=== PATIENT | female | born 2000 | race Caucasian/White ===

== ENCOUNTER 2023-08-04 23:13 | Emergency (ER) | payer OTHER, SELFPAY ==
[2023-08-04 23:22] VITALS: BP 137/93; PULSE 113; RESP 18; TEMP 37.2; O2SAT 98; BMI 32.3
--- NOTE | 2023-08-04 23:27 | ED.LOWEXIN ---
HPI - Extremity Injury (Lower) General Time Seen by Provider: 23:28 Date Seen: 08/04/23 Chief Complaint: Extremity Pain/Injury, Lower Stated Complaint: Left ankle injury Time Seen by Provider: 08/04/23 23:14 Source: patient and RN notes reviewed Mode of arrival: ambulatory Limitations: no limitations History of Present Illness HPI Narrative: 23-year-old female comes in today with left ankle pain after slipping on the stairs. Complains of pain of the lateral ankle, painful to walk. Has not taken anything for this. Denies prior ankle injury, denies possibility of and has Nexplanon in place. Related Data Home Medications Medication Instructions Recorded Confirmed No Known Home Medications 08/04/23 08/04/23 Allergies Allergy/AdvReac Type Severity Reaction Status Date / Time No Known Drug Allergies Allergy Verified 08/04/23 23:25 PFSH PFSH Social History Smoking Status: Never smoker Do you use any of these nicotine containing products: None Second hand tobacco smoke exposure: No How often do you have a drink containing alcohol: monthly or less How many standard drinks containing alcohol do you have on a typical day: 1 or 2 How often do you have six or more drinks on one occasion: Never AUDIT-C Alcohol total score: 1 Non-prescribed substance use: denies use service: No Exam Narrative: Exam Narrative: General: well nourished , NAD Head: Atraumatic and normocephalic ENT: External ears and external nose are normal Eyes: Conjunctiva clear, pupils are equal reactive, external ocular motions are intact Neck: Full spontaneous range of motion of the neck Lungs: No respiratory distress Musculoskeletal: Swelling and tenderness anterior to the lateral malleolus on the left, no tenderness the base of the 5th metatarsal and no tenderness of the lateral malleolus itself Neurologic: No gross focal neurologic deficits Skin: No rashes Psych: Mood and affect are appropriate Const: Vital Signs, click to edit/add: Vital Signs - 24 hr 08/04/23 23:22 Temperature 99 F Pulse Rate [Pulse Oximeter] 113 H Respiratory Rate 18 Blood Pressure [Ri ght Upper Arm] 137/93 H Pulse Oximetry 98 Oxygen Delivery Me thod Room Air Course Course ED Course: Patient seen examined, prior records reviewed. Patient presents today with left ankle pain after twisting the ankle on the stairs. Tenderness and swelling anterior to the lateral malleolus most consistent with sprain, x-rays are ordered and anticipate discharge. Ibuprofen ordered for pain. Reevaluation(s) Time of Reevaluation #1: 23:48 Reevaluation #1: X-ray of the left foot does not demonstrate any acute bony abnormalities. Patient is stable for discharge Vital Signs Vital signs: Initial Vital Signs Temperature 99 F 08/04/23 23:22 Temperature Source Temporal Artery Scan 08/04/23 23:22 Pulse Rate 113 H 08/04/23 23:22 Pulse Rhythm Regular 08/04/23 23:22 Pulse Strength 3+ Normal 08/04/23 23:22 Respiratory Rate 18 08/04/23 23:22 Blood Pressure 137/93 H 08/04/23 23:22 Blood Pressure Mean 107 H 08/04/23 23:22 Blood Pressure Position Sitting 08/04/23 23:22 Pulse Oximetry 98 08/04/23 23:22 Oxygen Delivery Method Room Air 08/04/23 23:22 Vital Signs Temperature 99 F 08/04/23 23:22 Pulse Rate 113 H 08/04/23 23:22 Respiratory Rate 18 08/04/23 23:22 Blood Pressure 137/93 H 08/04/23 23:22 Pulse Oximetry 98 08/04/23 23:22 Oxygen Delivery Method Room Air 08/04/23 23:22 Temperature 99 F 08/04/23 23:22 Pulse Rate 113 H 08/04/23 23:22 Respiratory Rate 18 08/04/23 23:22 Blood Pressure 137/93 H 08/04/23 23:22 Pulse Oximetry 98 08/04/23 23:22 Oxygen Delivery Method Room Air 08/04/23 23:22 Discharge Plan Discharge Clinical Impression: Ankle sprain and strain Patient Disposition: Home, Self-Care Condition: Stable Instructions: Ankle Sprain (ED) Additional Instructions: Ambulate with a ankle splint, weight-bearing as tolerated, crutches as needed Take Tylenol and ibuprofen as needed for pain Activity Level: Weight Bearing as Tolerated and Use Crutches Discharge Diet: Regular Prescriptions: No Action No Known Home Medications Stand Alone Forms: MyHealth Info Instructions
--- NOTE | 2023-08-04 23:32 | XR_ITS ---
Patient: ADITHYA BILLY Facility:?[facility] Patient ID:?[id number] Site Patient ID:?[id number]. Site :?2000 Study:?XRay-Extremity Left FOOT-08/04/2023 11:49:23 PM Ordering Physician:LEA Final Report: INDICATION: Trauma. TECHNIQUE: Left foot radiographs, 3 views. COMPARISON: None. FINDINGS: No acute fractures or dislocation. The joint spaces are preserved. No significant joint effusion. The Lisfranc joint appears intact. Boehler`s angle is preserved. No significant soft tissue edema or radiopaque foreign bodies. IMPRESSION: No acute fractures or dislocation. Dictated by Vahe Hernandes MD @ 08/05/2023 12:51:16 AM Signed by:?Vahe Hernandes MD @08/05/2023 12:51:16 AM (Electronic Signature)
[2023-08-04] MEDS: IBUPROFEN 600 MG TABLET PO (23:42)
== END 2023-08-05 00:34 | disposition home or self-care (01) ==
PROVIDERS: Emergency Provider Family Medicine
DX: S93.402A Sprain of unspecified ligament of left ankle, initial encounter (principal); W10.9XXA Fall (on) (from) unspecified stairs and steps, initial encounter
CPT/HCPCS: 29515; 73630; 99283; 99284; A9270

== ENCOUNTER 2024-04-27 10:32 | Outpatient (CLI) | payer OTHER, SELFPAY ==
--- NOTE | 2024-04-27 11:00 | CRLHL7_ITS ---
For Patients: As a result of the Century Cures Act, medical imaging exams and procedure reports are released immediately into your electronic medical record. You may view this report before your referring provider. If you have questions, please contact your health care provider. CLINICAL HISTORY: Chronic sinusitis. TECHNIQUE: CT of the paranasal sinuses without contrast. COMPARISON: None. FINDINGS: Anterior sinus group (frontal sinuses and anterior ethmoid air cells/frontoethmoidal recesses: The frontal sinuses are well aerated. Mild mucosal thickening and pooled secretions within several ethmoid air cells. The frontoethmoidal drainage pathways are not obstructed. Posterior sinus group (posterior ethmoid air cells and sphenoid sinuses)/sphenoethmoidal recesses: The posterior ethmoid air cells are well aerated. The sphenoid sinuses are well aerated. The sphenoethmoidal drainage pathways are not obstructed. Maxillary sinuses and ostiomeatal complexes: Mild bilateral maxillary sinus mucosal thickening. [place] infundibular outflow tracts are mildly narrowed but not obstructed. Turbinates: Bilateral middle turbinate tu bullosa. Nasal septum: Minimal rightward deviation. Nasal cavity: No obstructive lesions. Skullbase, maxilla, TMJ: Keros type 3 on the left. Keros type 3 on the right. No cribriform plate/lamellar dehiscence. No lamina papyracea dehiscence. Anterior ethmoidal canals are normally positioned No lytic or blastic osseous lesions. No periapical tooth lucencies. Mastoid air cells are clear. Orbital contents: Within normal limits. Imaged intracranial contents: Within normal limits. Imaged soft tissues structures: Within normal limits. IMPRESSION: 1. Scattered sites of mild paranasal sinus opacification including mucosal thickening/secretions within the ethmoid air cells and maxillary sinuses. No obstruction of the paranasal sinus outflow tracts. 2. No nasal cavity lesions. Please note that all CT scans at this facility use dose modulation, iterative reconstruction, and/or weight-based dosing when appropriate to reduce radiation dose to as low as reasonably achievable. Dictated by Sincere Rodríguez MD @ 04/27/2024 11:05:55 AM (Electronically Signed)
== END 2024-04-27 10:33 | disposition home or self-care (01) ==
LOC: CT 10:34
PROVIDERS: Visit Provider Otolaryngology
DX: J32.9 Chronic sinusitis, unspecified (principal)
CPT/HCPCS: 70486

== ENCOUNTER 2024-05-27 07:18 | Day surgery (SDC) | payer OTHER, SELFPAY ==
[2024-05-27] VITALS (13 sets, daily range): BP systolic 103–146; BP diastolic 54–96; PULSE 77–108; RESP 16–20; TEMP 36–37.1; O2SAT 92–96; BMI 39.3
--- OUTSIDE RECORDS SUMMARY | 2024-05-27 07:22 | XMS_ITS ---
Author Organization [facility] Address [address] [place] [id number] Care Team Providers Care Electromechanical Equipment Tester Name Role Phone DAXA VENTURA Primary Care Provider [phone] REASON FOR VISIT procedure rescheduling Social History Sex Assigned At : Social History Observation Description Sex Assigned At Female Encounters Encounter Location Date Provider Diagnosis [facility] [address] [place] [id number] 10/15/2023 DAXA VENTURA Plan Of Treatment No Information Progress Notes * ADITHYA ZELAYA HDOB:2000 (23 yo F)Acc No.[id number]:10/15/2023 Patient: Susanna ADITHYA SANDERS :2000 A ge:23 Y S ex:Female Address:[address] [place] [address] * true * Date: Generated for Printi ng/Fadayag/eTransmitting on: 0 05/27/2024 07:22 AM SHOWROOM CONSULTANT
--- OUTSIDE RECORDS SUMMARY | 2024-05-27 07:22 | XMS_ITS | Clinical Summary ---
Author Organization [facility] Address [place], [place] [address] Care Team Providers Care Executive Director Global Brand Marketing Name Role Phone Pcp, No Primary Care Provider Unavailabl e Allergies No known active allergies Medications ergocalciferol (VITAMIN D2; DRISDOL) 50,000 unit capsule Take 1 Capsule (50,000 units) by mouth once weekly. 09/07/2023 Active Social History Tobacco Use Types Packs/Day Years Used Date Smoking Tobacco: Never Smokeless Tobacco: Never Tobacco Cessation:Counseling Given: Yes Social Connections Answer Date Recorded Frequency of Communication with Friends and Fami ly Not on file 09/07/2023 Comments Unknown Sex and Gender Information Value Date Recorded Sex Assigned at Not on file Legal Sex Female 9:55 AM CDT Gender Identity Not on file Sexual Orientation Not on file Obstetrics History Last Filed Vital Signs Vital Sign Reading Time Taken Comments Blood Pressure 133/90 09/07/2023 1:34 PM CDT tow er Pulse 96 09/07/2023 1:34 PM CDT Temperature - - Respiratory Rate - - Oxygen Saturation 98% 09/07/2023 1:34 PM CDT Inhaled Oxygen Concentration - - Weight 107.5 kg (237 lb) 09/07/2023 1:34 PM CDT Height - - Body Mass Index - - Plan of Treatment Health Maintenance Due Date Last Done Comments Tdap 2013 Depression screening for age 12+ 2014 HIV for age 15-65 2017 HPV series for age 9-26 (1 - 3-dose series) 2017 Chlamydia for age 16-24 2018 BMI (ht and wt on same day) for age 18+ 01/31/2020 Hepatitis C screening for ag e 18-79 01/31/2020 Tetanus booster 2022 Pap test for age 21-65 2023 COVID-19 vaccine series (2023- season) 2023 02/05/2023, 01/13/2022 Influenza for age 9-49 12/20/2023 Pneumococcal series for age 6-49 Aged Out No longer eligible b ased on patient's age to complete this topic Care Teams Executive Director Global Brand Marketing Relationship Specialty Start Date End Date Pcp, No . PCP - General 09/07/23
--- OUTSIDE RECORDS SUMMARY | 2024-05-27 07:23 | XMS_ITS ---
Author Organization [facility] [place] Address [address] [place] [id number] Care Team Providers Care Social Science Analyst Name Role Phone DAXA VENTURA Primary Care Provider Allergies No Known Allergies REASON FOR VISIT nexplanon removal/reinsertion, Reference # for Nexplanon [id number], pt states had nexplanon places 2020 Medications Medication SIG (Take, Route, Frequency, Duration) Notes Start Date End Date Status Nexplanon LOT [id number] EXP 01/14/2023 Active Olopatadine HCl 0.2 % 1 drop into affected eye Ophthalmic Once a day 11/28/2022 Not-Taking Social History Tobacco Use: Social History Observation Description Date Details (start date - stop date) Never Smoker NA - NA Sex Assigned At : Social History Observation Description Sex Assigned At Female SBIRT (2018 Edition) Question Answer Notes Patient refused/declined SBIRT screening at this time? No 1. How often do you have a drink containing alco hol? Never 3. How often do you have five or more drinks on one occasion? Never SCORE 0 Interpretation Negative How many times in the past y ear have you used an illegal drug or used a prescription medication for non-medical reasons? 0 Total Count 0 Interpretation Negative Tobacco Control (Standard) Question Answer Notes Tobacco use: Nonsmoker Vital Signs Temperature 98.2 degrees Fahrenheit 11/18/19 24 Blood pressure systolic 132 mm Hg 11/18/19 24 Blood pressure diastolic 84 mm Hg 024 Heart Rate 94 /min 11/18/2023 Respiratory Rate 19 /min 11/18/2023 Height 63 in 11/18/2023 Weight 238.8 lbs 11/18/2023 BMI 42.3 kg/m2 11/18/2023 Oximetry 98 % 11/18/2023 Height-cm 160.02 cm 11/18/2023 Weight-kg 108.32 kg 11/18/2023 Procedures Procedure Date Ordered Date Performed Result Body Sit e REMOVE/INSERT NEXPLANON DRUG IMPLANT 11/18/2023 11/18/2023 N/A Encounters Encounter Location Date Provider Diagnosis Jeanne Hallman [facility] [address] [place], [place] [phone] 11/18/2023 DAXA VENTURA Encounter for remova l and reinsertion of Nexplanon Z30.46 Assessments Encounter Date Diagnosis (ICD Code) Assessment Notes Treatment Notes Treatment Clinical Notes Section Notes 11/18/2023 Encounter for removal and reinsertion of Nexplanon (ICD-10 - Z30.46) 11/18/2023 Other All questions were addressed. Patient/caretake r appears to clearly understand and is comfortable with careplan. Discussed treatment plan and expected course. Plan Of Treatment Treatment Notes Assessment Notes Other All questions were a ddressed. Patient/sheriff officer appears to clearly understand and is comfortable with careplan. Discussed treatment plan and expected course. Next Appt Details Follow Up: prn, Reason: Retu rn sooner if the condition changes, worsens or does not resolve. Preventative visit appt when due. Medications Administered Medication Instructions Date of Administration Dosage Notes Xylocaine/EPINEPHrine 11/18/2023 3 mL chase ified by Xena Andrews 11/18/2023 11:13:13 AM > Procedure Notes * Category Sub-Category Detail Notes Nexplanon Consent: Risks and benefi ts discussed. All questions answered. Informed consent signed Serial # [id number] Expiration Date: 07/2025 Removal & Reinsertion Procedure: Patient was placed in supine position and the left arm was rotated laterally and raised superiorly with the hand behind the head.A time-out was performed prior to initiating procedure to be sure of location. The area surrounding the Nexplanon was prepared with Choloraprep and draped in the usual sterile manner. 3 ml of 1 % lidocaine with epi was injected at the removal site. A perpendicular skin incision was made over the distal aspect of the device. The capsule lysed sharply and the device removed using a hemostat. The Nexplanon device intact. Hemostasis was assured.The skin was stretched and the wide bore needle on the clinical abstractor entered the skin slightly less than 30 degree angle. The clinical abstractor was lowered along the plane of the skin and then lifted and tented as the needle was inserted to its full length. The device was deployed and removed. Steri-strips were placed at the insertion site and covered with a band aid pressure dressing. Placement of the alexei was confirmed by palpation by provider and patient. She was told to remove the band aid in 24 hours and the steri-strips in 7 days., Removal reason: Removal Reason: Removal & reinse rtion Prior Auth Obtained Does the patient have insura nce?: Yes Name of primary insurance: [facility] Was a prior auth required?: No Confirmation Number: [id number] Progress Notes * ADITHYA ZELAYA ADOB :2000 (23 yo F)Acc No.[id number]:11/18/2023 Progress Note Patient: ADITHYA RUSSELL A Provider: JEREMY OLIVARES :2000 A ge:23 Y S ex:Female Date:11/18/2023 Address:[facility] [id number] Structured Data:Homeless : N o Subjective: * Chief Complaints: * N explanon removal/reinsertionReference # for Nexplanon [id number] states had nexplanon places 2020 * HPI: A nxiety Screening: OMAIRA-7 (2018 Edition) F eeling nervous, anxious, or on edge S everal days N ot being able to stop or control worrying?Several days W orrying too much about different things S everal days T rouble relaxing S everal days B eing so restless that it is hard to sit still S everal days B ecoming easily annoyed or irritable S everal days F eeling afraid as if something awful might happen S everal days T otal OMAIRA-7 Score 7 I f you checked any problems, how difficult have they made it for you to do your work, take care of things at home, or get along with other people? N ot difficult at all I nterpretation of Total ( 5 to 9) Mild D epression Screening: PHQ-2 (2015 Edition) L ittle interest or pleasure in doing things??Not at all F eeling down, depressed, or hopeless? N ot at all T otal Score 0 D epression Screening: Intervention F ollow-Up for Depression P atient follow-up to return when and if necessary N ew/Follow-up Patient Consult: Adithya presents today for a nexplanon removal and reinsertion. * ROS: A ll Other Systems: Review of Systems (ROS) A ll others negative except those mentioned in HPI. * Medical History: * Surgical History: D enies Past Surgical History * Hospitalization/Major Diagno stic Procedure: D enies Past Hospitalization * Family History: M other: diagnosed with Type 2 diabetes mellitus without complication, unspecified whether intermediate insulin use. F ather: diagnosed with Type 2 diabetes mellitus without complication, unspecified whether railway signal operator insulin use. P ategildardo Grand Father: diagnosed with Type 2 diabetes mellitus without complication, unspecified whether intermediate insulin use. P aternal Grand Mother: diagnosed with Type 2 diabetes mellitus without complication, unspecified whether intermediate insulin use. M aternal Grand Mother: diagnosed with Type 2 diabetes mellitus without complication, unspecified whether railway signal operator insulin use. * Social History: T obacco Use: T obacco Control (Standard) T obacco use: N onsmoker S uicide Screening: S uicide Screening I n the past two weeks, have you been bothered by thoughts that you want to kill yourself or attempt suicide? N o I ntimate Partner Violence (IPV): I PV Screening: negative . D rugs/Alcohol: D rugs H ave you used drugs other than those for medical reasons in the past 12 months? N o SBIRT (2018 Edition) P atient refused/declined SBIRT screening at this time? N o 1 . How often do you have a drink containing alcohol? N ever 3 . How often do you have five or more drinks on one occasion? N ever S CORE 0 I nterpretation N egative H ow many times in the past year have you used an illegal drug or used a prescription medication for non-medical reasons? 0 T otal Count 0 I nterpretation N egative * Medications: T akingNexplanon , Notes to Pharmacist: LOT [id number] EXP 01/14/2023Taking Nexplanon , Notes to Pharmacist: LOT [id number] EXP 01/14/2023Not-Taking/PRNOlopatadine HCl 0.2 % Solution 1 drop into affected eye Ophthalmic Once a day Medication List reviewed and reconciled with the patientNot-Taking/PRN Olopatadine HCl 0.2 % Solution 1 drop into affected eye Ophthalmic Once a day Medication List reviewed and reconciled with the patient * Allergies: N .K.D.A.no[Allergies Verified] Objective: * Vitals: T emp:98.2F, HR: 140 /min,94/min, BP:132/84mm Hg, Weight:238.8lbs, BMI:42.3Index, Height: 63 in, RR:19/min, Oxygen Sat %:98%, Ht-cm: 160.02 cm, Wt-k.32 kg. * Examination: G eneral Examination: GENERAL APPEARANCE: A wake, alert , pleasant, well nourished, in no acute distress. NEUROLOGIC: A lert and oriented, cooperative with exam, CN II-XII grossly intact. F amily Planning: Primary Method Beg. Visit - Female Primary Contr Method End of Visit Intention Contraceptive Counseling Assessment: * Assessment: 1. E ncounter for removal and reinsertion of Nexplanon - Z30.46 (Primary) Plan: * Treatment: 2. O thers Notes: All questions were addressed. Patient/sheriff officer appears to clearly understand and is comfortable with careplan. Discussed treatment plan and expected course. * Procedures: N explanon: Consent: R isks and benefits discussed. All questions answered. Informed consent signed. Serial # 1 [id number]. Expiration Date: 07/2025. Removal & Reinsertion Procedure: Angie bullard was placed in supine position and the left arm was rotated laterally and raised superiorly with the hand behind the head. A time-out was performed prior to initiating procedure to be sure of location. The area surrounding the Nexplanon was prepared with Choloraprep and draped in the usual sterile manner. 3 ml of 1 % lidocaine with epi was injected at the removal site. A perpendicular skin incision was made over the distal aspect of the device. The capsule lysed sharply and the device removed using a hemostat. The Nexplanon device intact. Hemostasis was assured. The skin was stretched and the wide bore needle on the clinical abstractor entered the skin slightly less than 30 degree angle. The clinical abstractor was lowered along the plane of the skin and then lifted and tented as the needle was inserted to its full length. The device was deployed and removed. Steri-strips were placed at the insertion site and covered with a band aid pressure dressing. Placement of the alexei was confirmed by palpation by provider and patient. She was told to remove the band aid in 24 hours and the steri-strips in 7 days., . Removal reason: R emoval Reason R emoval & reinsertion Prior Auth Obtained D oes the patient have insurance? Y es N birgit of primary insurance [facility] W as a prior auth required? N o C onfirmation Number [id number] * Therapeutic Injections: Lidocaine 1% with Epi : 3 mL (Dose No:1) (Route: Subcutaneous) given by JEREMY CARLISLE on left arm subcutaneous * Procedure Codes: J 7307 Levonorgesterl-Releasing Intra Cont System Nexplanon [id number] RMVL W/RINSJ NON-BIODEGRADABLE DRUG DLVR [id number] Lidocaine 1% with Epi, Units: 3.00 * Preventive Medicine: Counseling: C are goal follow-up plan: Exercise Counseling Provided- Y es Patient received educational materials on physical activity- Y es Nutrition/Dietary Counseling provided?Yes BMI management provided Y es Above Normal BMI Follow-up D ietary management education, guidance, and counseling, Dietary needs education, Giving encouragement to exercise * Follow Up: p rn (Reason: Return sooner if the condition changes, worsens or does not resolve. Preventative visit appt when due.) * Billing Information: * Visit Code: * Procedure Codes: J7307 Levonorgesterl-[place]. [address] RMVL W/RINSJ NON-BIODEGRADABLE DRUG DLVR IMPLT. J2001 Lidocaine 1% with Epi. Units: 3.00. Images * Consent for Procedure- Cooper 11/18/2023 11:08:17 AM * Sign off status: Completed true * Provider: BRITTANY OLIVARES- Date: 0 11/18/2023 Generated for Flores salmeron/Isaias/Deangelo on: 0 05/27/2024 07:22 AM OPEN HEARTH WORKER History and Physical Notes * HPI (History of Present Illness) Category Sub-Category Detail Notes Category Not es New/Follow-up Patient Consult Adithya presents today for a nexplanon removal and reinsertion Depression Screening Intervention Follow-Up for Depression: Patient follow-up to return when and if necessary Anxiety Screening OMAIRA-7 (2018 Edition) Feeling nervous, anxious, or on edge: Several days Not being able to stop or control worryi ng: Several days Worrying too much about different things : Several days Trouble relaxing: Several days Being so restless that it is hard to sit still: Several days Becoming easily annoyed or irritable: Se veral days Feeling afraid as if something awful [place] ht happen: Several days Total OMAIRA-7 Score: 7 If you checked any problems, how difficult have they made it for you to do your work, take care of things at home, or get along with other people?: Not difficult at all Interpretation of Total: (5 to 9) Mild Depression Screening PHQ-2 (2015 Edition) Little interest or pleasure in doing things?: Not at all Feeling down, depressed, or hopeless?: N ot at all Total Score: 0 Examination Category Sub-Category Detail Notes Category Not es General Examination GENERAL APPEARANCE: Awake, a lert , pleasant, well nourished, in no acute distress NEUROLOGIC: Alert and oriented, cooperative with exam, CN II-XII grossly intact Family Planning Primary Method Beg. Visit - Female Primary Contraceptive Method at Beginning of Visit- Female: Hormonal implant Primary Contr Method End of Visit Primar y Contraceptive Method at Exit- Female: Hormonal implant Intention In the next 12 month s,: pt does not want to get / have a baby Contraceptive Counseling Contraceptive c ounseling has been provided to patient that includes results of physical exam and lab studies, effective use of contraceptive methods, including natural family planning, and the benefits and efficacy of the methods including potential side effects and complications. Counseling has also been provided as to how to discontinue the method selected and information regarding back-up method selected and information regarding back up method use, including the use of certain oral contraceptives as post-coital emergency contraception:
--- OUTSIDE RECORDS SUMMARY | 2024-05-27 07:23 | XMS_ITS | Patient Health Record ---
Author Organization [facility] Address [address] [place] [place] [phone] Care Team Providers Care Assignment Manager Name Role Phone DAXA VENTURA Primary Care Provider SHAYY PRICE Unavailable [phone] Allergies No Known Allergies Reason For Referral No Information Medications Medication SIG (Take, Route, Frequency, Duration) Notes Start Date End Date Status Nexplanon LOT [id number] EXP 01/14/2023 Active Olopatadine HCl 0.2 % 1 drop into affected eye Ophthalmic Once a day 11/28/2022 Not-Taking Immunizations Vaccine Route Administration Date Status Comme nts SARSCOV2 VAC 50MCG/0.5ML IM, Moderna IM Intramuscular 07/12/2020 Administered Moderna [id number] SARSCOV2 VAC 50MCG/0.5ML IM, Moderna 2nd dose IM Intramuscular 08/09/2020 Administered moderna 044a21 a SARSCOV2 VAC 50MCG/0.5ML IM, Moderna 3rd dose IM Intramuscular 03/29/2021 Administered Social History Tobacco Use: Social History Observation [...] reasons? 0 Total Count 0 Interpretation Negative Smoking Question Answer Notes Are you a: never smoker Tobacco Control (Standard) Question Answer Notes Tobacco use: Nonsmoker Problems Problem Type SNOMED Code ICD Code Onset Dates Problem Status W/U Status Risk Notes Problem [id number] Allergic rhinitis, unspecified (J30.9) Active confirmed Vital Signs Heart Rate 94 /min 11/18/2023 Temperature 98.2 degrees Fahrenheit 11/18/2023 Respiratory Rate 19 /min 11/18/2023 Height-cm 160.02 cm 11/18/2023 Oximetry 98 % 11/18/2023 Blood pressure diastolic 84 mm Hg 11/18/2023 Weight-kg 108.32 kg 11/18/2023 Height 63 in 11/18/2023 Blood pressure systolic 132 mm Hg 11/18/2023 Weight 238.8 lbs 11/18/2023 BMI 42.3 kg/m2 11/18/2023 Procedures Procedure Date Ordered Date Performed Result Body Sit e REMOVE/INSERT NEXPLANON DRUG IMPLANT 11/18/2023 11/18/2023 N/A Encounters Encounter Location Date Provider Diagnosis [facility] [address] [place] [address] [place] [phone] 11/18/2023 DAXA VENTURA Encounter for remova l and reinsertion of Nexplanon Z30.46 [facility] [address] [place] [address] [place] [id number] 10/02/2023 DAXA VENTURA [facility] [address] [place] [address] [place] [id number] 10/15/2023 DAXA VENTURA Assessments Encounter Date Diagnosis (ICD Code) Assessment Notes Treatment Notes Treatment Clinical Notes Section Notes 11/18/2023 Encounter for removal and reinsertion of Nexplanon (ICD-10 - Z30.46) 11/18/2023 Other All questions were addressed. Patient/caretake r appears to clearly understand and is comfortable with careplan. Discussed treatment plan and expected course. Plan Of Treatment No Information Insurance Providers Payer Name Payer Address Payer Phone Subscriber Number Group Number Insured Name Patient Relationship to Insured Coverage Start Date Coverage End Date [facility] [address] [place] [phone] [id number] Ann-Marie Mejia Natural Child - Insured does not have Financial Responsibility (includes legally adopted child) 4 Medications Administered Medication Instructions Date of Administration Dosage Notes Lidocaine 1% 12/12/2020 3.0 mL LOT [id number] [facility] Xylocaine/EPINEPHrine 11/18/2023 3 mL chase ified by Alyssa Miranda Xena 11/18/2023 11:13:13 AM > Medical (General) History Medical History History ICD Code vitamin D deficency
--- OUTSIDE RECORDS SUMMARY | 2024-05-27 07:23 | XMS_ITS ---
Author Organization [facility] [place] Address [address] [place] [phone] Care Team Providers Care Air Commodore Name Role Phone DAXA VENTURA Primary Care Provider SHAYY PRICE [phone] REASON FOR VISIT Migraines Social History Sex Assigned At : Social History Observation Description Sex Assigned At Female Encounters Encounter Location Date Provider Diagnosis Jeanne [facility] [place] [address] [place] [id number] 12/15/2023 SHAYY PRICE Plan Of Treatment No Information Progress Notes * ADITHYA ZELAYA ADOB :2000 (24 yo F)Acc No.[id number]:12/15/2023 UNLOCKED PROGRESS NOTE Progress Notes Patient: Susanna ADITHYA SANDERS Provider: Graeme PRICE NP :2000 A ge:23 Y S ex:Female Date:12/15/2023 Address[address] [id number] Pcp:DAXA VENTURA Structured Data:Homeless : N o Subjective: * Chief Complaints: * 1 . Migraines. * Medical History: Objective: * Vitals: Assessment: Plan: * Treatment: * Billing Information: * Visit Code: * Procedure Codes: * Electronic signature of BRITTANY LOPEZ on 05/27/2024 at 07:23 AM DATABASE ADMINISTRATION MANAGER Sign off status: Pending * Provider: Graeme PRICE NP Date: 0 12/15/2023 Generated for Flores salmeron/Isaias/Deangelo on: 0 05/27/2024 07:23 AM DATABASE ADMINISTRATION MANAGER
[2024-05-27 07:52] LABS: Ur HCG Qualitative* Negative (Negative)
[2024-05-27] MEDS: 0.9 % SODIUM CHLORIDE 500 ML 500 ML 100 ML IV (08:13)
[2024-05-27] MEDS: SODIUM CHLORIDE 0.9 % (FLUSH) 10 ML SYRINGE IVF (08:14)
[2024-05-27] MEDS: OXYMETAZOLINE 0.05% NASAL SPRAY 2 SPRAY NOSTRIL-B (08:15)
[2024-05-27] MEDS: BUPIVACAINE 0.5%/EPINEPHRINE 0.9 MG (30.9 ML) INJECTION (09:15)
[2024-05-27] MEDS: MUPIROCIN 1 GM PACKET 1 APPLIC TOPICAL (09:15)
[2024-05-27] MEDS: COCAINE HCL 4 % 4 ML SOLUTION NOSTRIL-B (09:15)
[2024-05-27] MEDS: AYR SALINE NASAL GEL 1 APPLIC NOSTRIL-B (09:15)
--- NOTE | 2024-05-27 09:50 | W.ANESCHARGE ---
Anesthesia Charges Start Date/Time Anesthesia Start Date: 05/27/24 Anesthesia Start Time: 08:53 Stop Date/Time Anesthesia Stop Date: 05/27/24 Anesthesia Stop Time: 09:42 Coding CPT Codes CPT Codes: ANESTH NOSE/SINUS SURGERY - 55444 ([id number]) P3 - PATIENT W/SEVERE SYS DISEASE, QK - VMWARE ADMINISTRATOR 2-4 CNCRNT ANES PROC, QX - AUTO BRAKE MECHANIC SVC W/ MD MED DIRECTION
--- NOTE | 2024-05-27 10:22 | P.ENTPROC_ITS ---
Procedure Note Date of procedure: 05/27/24 Procedure: Preop diagnosis deviated septum nasal obstruction bilateral inferior turbinate hypertrophy bilateral middle turbinate tu bullosa nasal headache Postop diagnosis same Procedure endoscopic partial resection middle turbinate tu bullosa bilateral, submucous partial resection inferior turbinates bilateral, nasal septoplasty Under general trach anesthesia patient was prepped draped usual fashion the nose decongested and injected. A right hemitransfixion incision was made. Left anterior and posterior tunnels were created. A vertical incision was made at the bony cartilaginous junction a right posterior tunnel created. The posterior deflected portions of septal bone resected a large piece was trimmed and returned to intraseptal space. The hemitransfixion was closed with 2 4-0 chromic sutures. A stab incision was made in the anterior of the right inferior turbinate a tunnel created with a [place]upe dissector. The tu bone was outfractured a conservative anterior submucous resection performed only at the anterior head. The Coblation was used for hemostasis and to cauterize intramurally along the inferior 10%. This was repeated on the left side in identical fashion. The right middle turbinate tu was incised inferolaterally a bone infractured and the turbinate crushed with the [place] forceps. This was repeated on the left side in identical fashion. 0 degree endoscopy was available throughout the procedure. Silastic stents were secured inside the septum with 3-0 nylon and Merocel packing soaked in Bactroban was placed in each side of the nose. The patient procedure well was taken recovery in satisfactory condition. Blood loss was less than 20 mL. Surgeon: Melecio Hammond MD
[2024-05-27] MEDS: IBUPROFEN 200 MG TABLET PO (10:30)
[2024-05-27] MEDS: ACETAMINOPHEN 325 MG TABLET PO (10:30)
--- NOTE | 2024-05-27 10:57 | P.ANES_ITS ---
Anesthesia Charges Start Date/Time Anesthesia Start Date: 05/27/24 Anesthesia Start Time: 08:53 Stop Date/Time Anesthesia Stop Date: 05/27/24 Anesthesia Stop Time: 09:42 Coding CPT Codes CPT Codes: ANESTH NOSE/SINUS SURGERY - 75718 ([id number]) P3 - PATIENT W/SEVERE SYS DISEASE, QX - WET WHEELER SVFlora W/ MD MED DIRECTION, QK - SUPERVISOR [employer]ODUCTS 2-4 CNCRNT ANES PROC
--- NOTE | 2024-05-27 10:57 | W.ANESCHARGE ---
Anesthesia Charges Start Date/Time Anesthesia Start Date: 05/27/24 Anesthesia Start Time: 08:53 Stop Date/Time Anesthesia Stop Date: 05/27/24 Anesthesia Stop Time: 09:42 Coding CPT Codes CPT Codes: ANESTH NOSE/SINUS SURGERY - 79141 ([id number]) P3 - PATIENT W/SEVERE SYS DISEASE, QX - PROPERTY MAINTENANCE SUPERVISOR SVFlora W/ MD MED DIRECTION, QK - SALES OFFICE ASSISTANT 2-4 CNCRNT ANES PROC
== END 2024-05-27 11:53 | disposition home or self-care (01) ==
PROVIDERS: Anesthesiology; Visit Provider Otolaryngology
PROC: (CPT 31231; principal; 2024-05-27 08:45)
DX: J34.2 Deviated nasal septum (principal); J34.3 Hypertrophy of nasal turbinates; R51.9 Headache, unspecified
CPT/HCPCS: 30520; 30140; 30999; 00160; 81025; A9270; J0330; J1100; J2405; J2704; J3010; J7030